=== PATIENT | male | born 1980 | race Caucasian/White ===

== ENCOUNTER 2019-02-09 09:27 | Emergency (ER) | payer OTHER, SELFPAY ==
[2019-02-09 09:29] VITALS: BP 139/86; PULSE 98; RESP 18; TEMP 36.4; O2SAT 98; BMI 57.7
--- NOTE | 2019-02-09 09:33 | ED_ITS ---
HPI - Nausea/Vomiting/Diarrhea General Chief complaint: Nausea/Vomiting/Diarrhea Stated complaint: N/V with back pain Time Seen by Provider: 02/09/19 09:33 Source: patient Mode of arrival: ambulatory Limitations: no limitations History of Present Illness HPI Narrative: 38-year-old male comes in with complaint of left-sided black pain and nausea and vomiting intermittently for 2 weeks. Patient states that he has had vomiting on and off for 2 weeks. The last most severe episode was Sunday a week ago all day. He states that he would have several days review is and then have a couple episodes of vomiting. He had some earlier this morning at about 7am. Patient denies any fevers or chills. He denies any issues with bowel movements, no diarrhea or constipation. denies any issues with urination. Patient did note that he has had back pain initially on both sides and now just on the left side that seems to be more associated with the vomiting. He denies it is fairly low grade. Patient states that comes a little bit around to the front. Patient denies any testicular pain or issues with discharge. Pa rticularly in the last 48 hours when he has pain and then he throws up afterwards. Patient has not had similar symptoms in the past. He denies any current medical issues other than obesity. He denies any surgeries other than tonsillectomy. He denies any tobacco, alcohol or illicit. Does not have a PCP currently. Related Data Previous Rx's Medication Instructions Recorded pimecrolimus [Elidel] 1 aditi TOPICAL BID PRN #30 gm 07/03/16 triamcinolone acetonide 1 aditi TOPICAL BID #15 gm 07/03/16 albuterol sulfate [Ventolin HFA] 0 INH Q4H #8 gm 10/24/16 azithromycin [Zithromax] 0 PO QDAY #1 packet 10/24/16 prednisone 0 PO QDAY #7 tab 10/24/16 Allergies Allergy/AdvReac Type Severity Reaction Status Date / Time No Known Drug Allergies Allergy Verified 02/09/19 09:29 Review of Systems Review of Systems ROS Unobtainable: All systems reviewed & are unremarkable except as noted in HPI and below Constitutional Denies chills, Denies fever(s), Denies lethargy and Denies weakness Cardiovascular Denies chest pain and Denies dyspnea Respiratory Denies dyspnea Gastrointestinal Gastrointestinal: Denies abdominal pain, Denies melena, Denies hematochezia, Denies change in bowel habits, Denies tenesmus, Denies diarrhea, Reports nausea and Reports vomiting Genitourinary Reports as per HPI, Denies hematuria, Denies difficulty urinating, Denies dysuria, Reports flank pain (left intermittent), Denies testicular pain, Denies urinary frequency, Denies urinary incontinence and Denies urinary urgency Musculoskeletal Denies back pain Integumentary/Breasts Denies rash Neurologic Denies weakness [facility] Medical History (Updated 02/09/19 @ 13:36 by Vane Saldivar DO) Obesity (Chronic) Surgical History (Updated 02/09/19 @ 10:00 by Vane Saldivar DO) History of tonsillectomy (Chronic) Social History (Updated 02/09/19 @ 10:00 by Vane Saldivar DO) Smoking Status: Never smoker alcohol intake: never substance use type: does not use Social History (Updated 02/09/19 @ 10:00 by Vane Saldivar DO) Smoking Status: Never smoker alcohol intake: never substance use type: does not use Exam Narrative Exam Narrative: GENERAL: Alert and oriented x three, morbidly obese male in no acute distress. HEENT: Head normocephalic, atraumatic, EOMI, pupils reactive, face symmetric, moist mucous membranes NECK: Supple, full range of motion CARDIOVASCULAR: Regular rate and rhythm without murmurs, rubs or gallops. RESPIRATORY: Breath sounds equal bilaterally, no wheezes rales or rhonchi. ABDOMEN: Soft, nontender. Normoactive bowel sounds all 4 quadrants. No guarding or rebound, rigidity, no mass : No CVA tenderness BACK: No cervical, thoracic or lumbar vertebral point tenderness. Patient has normal range of motion. Patient's gait is normal. NEUROLOGICAL: Cranial nerves II through XII grossly intact. Moving all extremities. SKIN: Warm, dry, no petechiae, no rashes or lesions. Initial Vital Signs Initial Vital Signs: Vital Signs Temperature 97.6 F 02/09/19 09:29 Pulse Rate 98 H 02/09/19 09:29 Respiratory Rate 18 02/09/19 09:29 Blood Pressure 139/86 02/09/19 09:29 Pulse Oximetry 98 02/09/19 09:29 Course Orders Ordered: ED Orders 02/09/19 09:56 US abdomen complete Stat 02/09/19 10:05 Complete Blood Count AUTO DIFF Stat Comprehensive Metabolic Panel Stat Lipase Stat Partial Thromboplastin Time Stat Prothrombin Time INR Stat 02/09/19 11:00 Urine Microscopic Stat 02/09/19 11:34 CT kidney ureter bladder (KUB) Stat Vital Signs - 8 hr 02/09/19 11:45 02/09/19 13:22 02/09/19 15:01 Pulse Rate 98 H 93 H 81 Respiratory Rate 20 18 18 Blood Pressure 140/84 Blood Pressure [Right Arm] 152/84 H 137/85 Pulse Oximetry 98 99 100 MDM - Nausea/Vomiting/Diarrhea Lab Data Attestation: I reviewed the patient's lab results. Result diagrams: 02/09/19 10:05 02/09/19 10:05 Lab Results 02/09/19 02/09/19 02/09/19 Range/Units 10:05 10:05 10:05 WBC 10.5 (4.5-11.0) X10^3/uL RBC 4.98 (4.5-5.9) X10^6/uL Hgb 14.1 (13.5-17.5) g/dL Hct 42.7 (41-53) % MCV 85.8 (80-100) fL MCH 28.4 (26-34) PG MCHC 33.1 (30-36) % RDW 15.0 H (11.6-14.8) % Plt Count 283 (150-400) X10^3/uL Neut % (Auto) 78.3 H (50-75) % Lymph % (Auto) 13.4 L (25-40) % [place] % (Auto) 6.2 (3-14) % Eos % (Auto) 1.2 L (2-4) % Baso % (Auto) 0.9 (0-2) % Neut # (Auto) 8200 H (0910-5677) /uL Lymph # (Auto) 1400 (8447-5254) /uL [place] # (Auto) 700 (0-900) /uL Eos # (Auto) 100 (0-450) /uL Baso # (Auto) 100 (0-100) /uL PT 12.8 H (10.1-12.7) SECONDS INR 1.1 (0.9-1.3) APTT 34 (26.4-36.2) SECONDS Sodium 143 (137-145) mmol/L Potassium 4.4 (3.4-5.1) mmol/L Chloride 101 (98-107) mmol/L Carbon Dioxide 32 (22-32) mmol/L BUN 17 (9-20) mg/dL Creatinine 1.50 H (0.66-1.25) mg/dL Estimated GFR 52.4 L (>60) mL/min BUN/Creatinine Ratio 11.3 (6-22) Glucose 115 H (70-100) mg/dL Calcium 9.5 (8.4-10.2) mg/dL Total Bilirubin 0.6 (0.2-1.3) mg/dL AST 20 (17-59) IU/L ALT 30 (21-72) IU/L Alkaline Phosphatase 94 (38-126) U/L Total Protein 8.5 H (6.3-8.2) g/dL Albumin 4.4 (3.5-5.0) g/dL Globulin 4.1 (1.7-4.1) g/dL Albumin/Globulin Ratio 1.1 (1.0-2.8) Lipase 61 (23-300) U/L Urine RBC (0-5/HPF) Urine WBC (0-5/HPF) Ur Squamous Epith Cells (0-5/HPF) Amorphous Sediment Urine Bacteria (None) Ur Culture Indicated? 02/09/19 Range/Units 11:00 WBC (4.5-11.0) X10^3/uL RBC (4.5-5.9) X10^6/uL Hgb (13.5-17.5) g/dL Hct (41-53) % MCV (80-100) fL MCH (26-34) PG MCHC (30-36) % RDW (11.6-14.8) % Plt Count (150-400) X10^3/uL Neut % (Auto) (50-75) % Lymph % (Auto) (25-40) % [place] % (Auto) (3-14) % Eos % (Auto) (2-4) % Baso % (Auto) (0-2) % Neut # (Auto) (4395-6172) /uL Lymph # (Auto) (3652-9465) /uL [place] # (Auto) (0-900) /uL Eos # (Auto) (0-450) /uL Baso # (Auto) (0-100) /uL PT (10.1-12.7) SECONDS INR (0.9-1.3) APTT (26.4-36.2) SECONDS Sodium (137-145) mmol/L Potassium (3.4-5.1) mmol/L Chloride (98-107) mmol/L Carbon Dioxide (22-32) mmol/L BUN (9-20) mg/dL Creatinine (0.66-1.25) mg/dL Estimated GFR (>60) mL/min BUN/Creatinine Ratio (6-22) Glucose (70-100) mg/dL Calcium (8.4-10.2) mg/dL Total Bilirubin (0.2-1.3) mg/dL AST (17-59) IU/L ALT (21-72) IU/L Alkaline Phosphatase (38-126) U/L Total Protein (6.3-8.2) g/dL Albumin (3.5-5.0) g/dL Globulin (1.7-4.1) g/dL Albumin/Globulin Ratio (1.0-2.8) Lipase (23-300) U/L Urine RBC None seen (0-5/HPF) Urine WBC None seen (0-5/HPF) Ur Squamous Epith Cells 1-5 /hpf (0-5/HPF) Amorphous Sediment 1+ Urine Bacteria None seen (None) Ur Culture Indicated? Cult not indicated Urine Dip Bedside Urine Glucose Negative Bedside Urine Bilirubin - Negative Bedside Urine Ketone - Negative Urine Specific [place] 1.020 Bedside Urine Occult Blood +/- Bedside Urine pH 6.0 Bedside Urine Protein +/- 15 Bedside Urine Urobilinogen - Negative Bedside Urine Nitrite - Negative Bedside Urine Leukocytes - Negative Esterase Imaging Data US - abdomen: Radiologist's impression: [address] [address] Ultrasound Report Signed Patient: Emilio Burdick EMR#: [id number] : 1980Acct:[id number] Age/Sex: 38 / MDate of Service: 02/09/19 Loc: ED Accession Number: [id number] Procedure: US abdomen complete Ordering Provider: Vane Saldivar D.O. PROCEDURE: US ABDOMEN COMPLETE INDICATIONS: LEFT FLANK PAIN, VOMITING X 2 WEEKS TECHNIQUE: Real-time scanning was performed of the abdominal and retroperitoneal organs, with image documentation. COMPARISON: None. FINDINGS: This study is limited by body habitus. Liver: The liver demonstrates normal size. The liver demonstrates generalized increased echogenicity. This decreases ultrasound sensitivity for detection of hepatic masses. Gallbladder: No findings of gallstones or sludge are seen. The gallbladder wall is not thickened, measuring 3 mm or less. No specific pericholecystic fluid is seen. The sonographic Rojas sign is negative. Biliary ducts: Intrahepatic bile ducts are non-dilated. Extrahepatic bile duct caliber measures 5 mm. Normal is 6-7 mm or less in diameter, or 10 mm or less post-cholecystectomy. Pancreas: Not seen. Spleen: Not seen. Kidneys: Kidneys are normal in size and echotexture. Right kidney measures 13.5 cm long; left kidney measures 15 cm long. No shadowing stones are seen. There is moderate left-sided hydronephrosis. No solid masses. Aorta: Not seen Iliacs: Not seen IVC: Intrahepatic inferior vena cava is patent. Miscellaneous: No free abdominal fluid. IMPRESSION: There is moderate left-sided hydronephrosis. Fatty liver infiltration. Study limited by body habitus, without visualization of the pancreas, spleen, aorta, or iliac arteries. Dictated by: Fernando Anderson M.D. on 02/09/2019 at 10:49 Approved by: Fernando Anderson M.D. on 02/09/2019 at 10:51 CT scan - abdomen: Radiologist's impression: [place] [address] CT Scan Report Signed Patient: Emilio Burdick EMR#: [id number] : 1980Acct:[id number] Age/Sex: 38 / MDate of Service: 02/09/19 Loc: ED Accession Number: [id number] Procedure: CT kidney ureter bladder (KUB) Ordering Provider: Vane Saldivar D.O. PROCEDURE: CT KIDNEY URETER BLADDER (KUB) INDICATIONS: intermittent vomiting/left flank pain, hydro on US TECHNIQUE: Noncontrast 5 mm thick sections acquired from the diaphragms to the symphysis. 5 mm thick coronal and sagittal reformats were then performed. For radiation dose reduction, the following was used: automated exposure control, adjustment of mA and/or kV according to patient size. COMPARISON: [facility], , US ABDOMEN COMPLETE, 02/09/2019, 10:28. FINDINGS: Image quality: Excellent. Lung bases: Lung bases are clear. Heart size is normal. Urinary system: There is an obstructing stone seen within the left mid ureter, which measures 9 mm craniocaudally. This can be seen on series 4 image 51 and on series 2 image 61. There is associated moderate left-sided hydroureter and hydronephrosis. Mild left-sided perinephric fat stranding can be seen. No nonobstructing kidney stones are seen. The kidneys demonstrate normal size. There is no right-sided hydronephrosis. No calcified bladder stones are seen. The bladder is largely decompressed at the time of this study. Other solid organs: Liver is normal in size. Diffuse fatty liver infiltration is noted. Gallbladder is partially decompressed at the time of this study. Pancreas is normal in contours. Spleen is normal in size. No adrenal nodules. Peritoneum and bowel: Unenhanced bowel loops demonstrate normal wall thickness and caliber. No free fluid or air. Nodes and vessels: No retroperitoneal or mesenteric adenopathy by size criteria. Aorta and inferior vena cava are normal in caliber. Abdominal wall: A mild periumbilical hernia is seen, containing fat. Pelvis: No free pelvic fluid. No inguinal adenopathy. Mild bilateral fat- containing inguinal hernias are seen. Bones: No suspicious bony lesions. There is an apparent sacral bone island seen on the left, as on series 4 image 70. No vertebral body compression fractures. IMPRESSION: There is a 9 mm obstructing stone seen within the left mid ureter, with associated left-sided hydroureter and hydronephrosis. Minimal perinephric fat stranding is seen. No nonobstructing kidney stones are seen. Incidental note is made of: Fatty liver infiltration Fat-containing periumbilical hernia Bilateral fat-containing inguinal hernias Dictated by: Fernando Anderson M.D. on 02/09/2019 at 10:59 Approved by: Fernando Anderson M.D. on 02/09/2019 at 11:02 MDM Narrative Medical decision making narrative: Initially discussed that I would take to do lab work as well as CT KUB, patient would prefer to do ultrasound at this time. Ultrasound does show hydro, patient's bladder was empty so could not evaluate for ureteral jets, patient does not have a stone visualized. Urine shows blood, no nitrates or leuks, WBC is normal with leftward shift. His creatinine is 1.5 for comparison and a GFR 52. Total protein slightly elevated 8.5. Other abdominal labs are normal. Discussed with patient he may have a stone causing obstruction and hydro with decrease in his renal function. I would like to get a CT KUB which patient is willing at this time. Patient discuss that he may need intervention for Urology we discussed [facility] which is are affiliated groups but he would prefer not to have to go to [place] and we discussed either Dr. Loja or the local urology group in [facility]. Spoke with Dr. Hunter from [facility] He asks that we talk with hospitalist group for admitting physician but would see the patient today for stent and OR. Discussed with patient is open to transfer. He does ask if he can drive himself. Discussed with hospitalist, Dr. Hermosillo, he accepts for transfer. States if patient wishes to drive himself he can got to ER and be admitted through ED or transfer via ambulance directly. Patient elects to transfer via ambulance. Patient cooperative during stay. Last meal was at 3am, had some sips of water upon arrival, none since then. Discharge Plan Departure Patient Disposition: [facility] Clinical Impression: Hydronephrosis with renal and ureteral calculous obstruction, Acute kidney injury Discharge Date/Time: 02/09/19 15:02 Interventions: ED Discharge Assessment Last Done: 02/09/19 15:01 Prescriptions: No Action triamcinolone acetonide 0.5 % cream 1 aditi Topical BID Qty: 15 RF: 2 pimecrolimus [Elidel] 1 % cream 1 aditi Topical BID PRNQty: 30 RF: 3 azithromycin [Zithromax] 250 MG tablet PO QDAY Qty: 1 RF: 0 prednisone 20 MG tablet PO QDAY Qty: 7 RF: 0 albuterol sulfate [Ventolin HFA] 90 MCG/PUFF HFA aerosol inhaler INH Q4H Qty: 8 RF: 0
--- NOTE | 2019-02-09 09:56 | DI.US.S_ITS ---
PROCEDURE: US ABDOMEN COMPLETE INDICATIONS: LEFT FLANK PAIN, VOMITING X 2 WEEKS TECHNIQUE: Real-time scanning was performed of the abdominal and retroperitoneal organs, with image documentation. COMPARISON: None. FINDINGS: This study is limited by body habitus. Liver: The liver demonstrates normal size. The liver demonstrates generalized increased echogenicity. This decreases ultrasound sensitivity for detection of hepatic masses. Gallbladder: No findings of gallstones or sludge are seen. The gallbladder wall is not thickened, measuring 3 mm or less. No specific pericholecystic fluid is seen. The sonographic Rojas sign is negative. Biliary ducts: Intrahepatic bile ducts are non-dilated. Extrahepatic bile duct caliber measures 5 mm. Normal is 6-7 mm or less in diameter, or 10 mm or less post-cholecystectomy. Pancreas: Not seen. Spleen: Not seen. Kidneys: Kidneys are normal in size and echotexture. Right kidney measures 13.5 cm long; left kidney measures 15 cm long. No shadowing stones are seen. There is moderate left-sided hydronephrosis. No solid masses. Aorta: Not seen Iliacs: Not seen IVC: Intrahepatic inferior vena cava is patent. Miscellaneous: No free abdominal fluid. IMPRESSION: There is moderate left-sided hydronephrosis. Fatty liver infiltration. Study limited by body habitus, without visualization of the pancreas, spleen, aorta, or iliac arteries. Dictated by: Fernando Anderson M.D. on 02/09/2019 at 10:49 Approved by: Fernando Anderson M.D. on 02/09/2019 at 10:51
[2019-02-09 10:15] LABS: Add Manual Diff / Slide Review NO; Basophils Absolute Auto 100 /uL (0-100); Basophils Percent Auto 0.9 % (0-2); Eosinophils Absolute Auto 100 /uL (0-450); Eosinophils Percent Auto 1.2 % (2-4); Hematocrit 42.7 % (41-53); Hemoglobin 14.1 g/dL (13.5-17.5); Lymphocytes Absolute Auto 1400 /uL (1100-4500); Lymphocytes Percent Auto 13.4 % (25-40); Mean Corpuscular HGB Conc 33.1 % (30-36); Mean Corpuscular Hemoglobin 28.4 PG (26-34); Mean Corpuscular Volume 85.8 fL (80-100); Monocytes Absolute Auto 700 /uL (0-900); Monocytes Percent Auto 6.2 % (3-14); Neutrophils Absolute Auto 8200 /uL (1500-7000); Neutrophils Percent Auto 78.3 % (50-75); Platelet Count 283 X10^3/uL (150-400); Red Blood Cell Count 4.98 X10^6/uL (4.5-5.9); White Blood Cell Count 10.5 X10^3/uL (4.5-11.0)
[2019-02-09 10:22] LABS: INR 1.1 (0.9-1.3); Prothrombin Time 12.8 SECONDS (10.1-12.7)
[2019-02-09 10:25] LABS: PTT Partial Thromboplastin Tim 34 SECONDS (26.4-36.2)
[2019-02-09 10:26] LABS: Alanine Aminotransferase 30 IU/L (21-72); Albumin 4.4 g/dL (3.5-5.0); Albumin Globulin Ratio 1.1 (1.0-2.8); Alkaline Phosphatase 94 U/L (38-126); Aspartate Aminotransferase 20 IU/L (17-59); BUN Creatinine Ratio 11.3 (6-22); Bilirubin Total 0.6 mg/dL (0.2-1.3); Blood Urea Nitrogen 17 mg/dL (9-20); Calcium 9.5 mg/dL (8.4-10.2); Carbon Dioxide 32 mmol/L (22-32); Chloride 101 mmol/L (98-107); Estimated Glomerular Filt Rate 52.4 mL/min (>60); Globulin 4.1 g/dL (1.7-4.1); Glucose 115 mg/dL (70-100); HEMOLYSIS < 15 (0-50); Lipase 61 U/L (23-300); Potassium 4.4 mmol/L (3.4-5.1); Sodium 143 mmol/L (137-145); Total Protein 8.5 g/dL (6.3-8.2)
[2019-02-09 11:28] LABS: Amorphous Sediment Urine 1+; Bacteria Urine None Seen; Culture Indicated Urine Cult Not Indicated; RBC Urine None Seen (0-5/HPF); Squamous Epithelial Cell Urine 1-5 /HPF (0-5/HPF); WBC Urine None Seen (0-5/HPF)
--- NOTE | 2019-02-09 11:34 | DI.CT.S_ITS ---
PROCEDURE: CT KIDNEY URETER BLADDER (KUB) INDICATIONS: intermittent vomiting/left flank pain, hydro on US TECHNIQUE: Noncontrast 5 mm thick sections acquired from the diaphragms to the symphysis. 5 mm thick coronal and sagittal reformats were then performed. For radiation dose reduction, the following was used: automated exposure control, adjustment of mA and/or kV according to patient size. COMPARISON: [facility], US, US ABDOMEN COMPLETE, 02/09/2019, 10:28. FINDINGS: Image quality: Excellent. Lung bases: Lung bases are clear. Heart size is normal. Urinary system: There is an obstructing stone seen within the left mid ureter, which measures 9 mm craniocaudally. This can be seen on series 4 image 51 and on series 2 image 61. There is associated moderate left-sided hydroureter and hydronephrosis. Mild left-sided perinephric fat stranding can be seen. No nonobstructing kidney stones are seen. The kidneys demonstrate normal size. There is no right-sided hydronephrosis. No calcified bladder stones are seen. The bladder is largely decompressed at the time of this study. Other solid organs: Liver is normal in size. Diffuse fatty liver infiltration is noted. Gallbladder is partially decompressed at the time of this study. Pancreas is normal in contours. Spleen is normal in size. No adrenal nodules. Peritoneum and bowel: Unenhanced bowel loops demonstrate normal wall thickness and caliber. No free fluid or air. Nodes and vessels: No retroperitoneal or mesenteric adenopathy by size criteria. Aorta and inferior vena cava are normal in caliber. Abdominal wall: A mild periumbilical hernia is seen, containing fat. Pelvis: No free pelvic fluid. No inguinal adenopathy. Mild bilateral fat-containing inguinal hernias are seen. Bones: No suspicious bony lesions. There is an apparent sacral bone island seen on the left, as on series 4 image 70. No vertebral body compression fractures. IMPRESSION: There is a 9 mm obstructing stone seen within the left mid ureter, with associated left-sided hydroureter and hydronephrosis. Minimal perinephric fat stranding is seen. No nonobstructing kidney stones are seen. Incidental note is made of: Fatty liver infiltration Fat-containing periumbilical hernia Bilateral fat-containing inguinal hernias Dictated by: Fernando Anderson M.D. on 02/09/2019 at 10:59 Approved by: Fernando Anderson M.D. on 02/09/2019 at 11:02
[2019-02-09 11:45] VITALS: BP 152/84; PULSE 98; RESP 20; O2SAT 98
[2019-02-09 13:22] VITALS: BP 137/85; PULSE 93; RESP 18; O2SAT 99
--- NOTE | 2019-02-09 13:46 | PC.NURSE ---
Will transfer to [facility] for surgery on kidney stone
--- NOTE | 2019-02-09 14:19 | PC.NURSE ---
Report called to [facility] and they mentioned that they did not know he was bariatric and will call back with any room changes
[2019-02-09 15:01] VITALS: BP 140/84; PULSE 81; RESP 18; O2SAT 100
== END 2019-02-09 15:02 | disposition short-term general hospital (02) ==
PROVIDERS: Emergency Provider Emergency Medicine
DX: N13.2 Hydronephrosis with renal and ureteral calculous obstruction (principal); N17.9 Acute kidney failure, unspecified
CPT/HCPCS: 36415; 74176; 76700; 80053; 81003; 81015; 83690; 85025; 85610; 85730; 99283; 99284

== ENCOUNTER → 2019-09-13 14:10 | Outpatient (CLI) | payer OTHER, SELFPAY ==
--- NOTE | 2019-09-13 14:13 | DI.RAD.S_ITS ---
PROCEDURE: XR CHEST 2V INDICATIONS: cough, wheezing TECHNIQUE: 2 views of the chest were acquired. COMPARISON: [facility], , CHEST 2 VIEW, 10/24/2016, 10:31. FINDINGS: Surgical changes and devices: None. Lungs and pleura: Lungs are clear. No pleural effusions or pneumothorax. Mediastinum: Mediastinal contours are normal. Heart size is normal. Bones and chest wall: No suspicious bony abnormalities. Soft tissues appear unremarkable. IMPRESSION: No acute cardiopulmonary findings. Dictated by: Yasmin Mcadams M.D. on 09/13/2019 at 13:27 Approved by: Yasmin Mcadams M.D. on 09/13/2019 at 13:27
== END ==
PROVIDERS: Referring Provider Physician Assistant; Visit Provider Physician Assistant
DX: R05 Cough (principal); R06.2 Wheezing
CPT/HCPCS: 71046

== ENCOUNTER → 2025-05-30 14:10 | Outpatient (CLI) | payer OTHER, SELFPAY | PROVIDERS: Visit Provider Nurse Practitioner Family | DX: J02.9 Acute pharyngitis, unspecified (principal) | CPT/HCPCS: 87070 ==